=== PATIENT | male | born 1980 | race Caucasian/White ===

== ENCOUNTER 2022-08-10 19:07 | Emergency (ER) | payer MEDICAID, SELFPAY ==
[2022-08-10 19:53] VITALS: BP 132/96; PULSE 88; RESP 18; TEMP 36.7; O2SAT 98
[2022-08-10 20:23] LABS: Basophils Absolute Auto 0.1 K/mm3 (0.0-0.1); Basophils Percent Auto 0.8 % (0.2-1.2); Eosinophils Absolute Auto 0.1 K/mm3 (0-0.3); Eosinophils Percent Auto 1.4 % (0-4.4); Hematocrit 42.4 % (42.0-52.0); Hemoglobin 14.6 g/dL (14.0-18.0); Immature Granulocyte Absolute 0.03 K/mm3 (0.00-0.031); Immature Granulocyte Percent A 0.3 % (0-0.5); Lymphocytes Absolute Auto 2.73 K/mm3 (0.9-3.2); Lymphocytes Percent Auto 28.1 % (18.3-44.2); Mean Corpuscular HGB Conc 34.4 g/dl (32-36); Mean Corpuscular Hemoglobin 31.1 pg (26-34); Mean Corpuscular Volume 90.4 fl (80-100); Mean Platelet Volume 10.7 fl (7.4-10.4); Monocytes Absolute Auto 0.7 K/mm3 (0.1-0.6); Monocytes Percent Auto 7.3 % (2.6-8.5); Neutrophils Percent Auto 62.1 % (45.5-73.1); Platelet Count Result 375 k/mm3 (150-375); Red Blood Count 4.69 M/mm3 (4.6-6.20); Red Cell Distribution Width 12.5 % (11.5-14.5); White Blood Count 9.7 K/mm3 (4.5-10.0)
[2022-08-10 20:30] LABS: Appearance Urine Clear (Clear); Bilirubin Urine Negative (Negative); Blood Urine Negative (Negative); Color Urine Yellow (Yellow); Glucose Urine UA Negative (Negative); Ketones Urine Negative (Negative); Leukocyte Esterase Ur Negative LEU/UL (Negative); Nitrate Urine Negative (Negative); Protein Urine Negative (Negative); Urobilinogen Urine 0.2 mg/dL (<2.0)
[2022-08-10 20:33] LABS: Ethanol < 10 mg/dL (<10)
[2022-08-10 20:38] LABS: Bacteria Urine Trace /hpf; Mucus Urine Rare /lpf; RBC Urine 0-2 /hpf (0-2); Squamous Epithelial Cell Urine Rare /hpf (Few); WBC Urine 0-3 /hpf
[2022-08-10 20:39] LABS: Alanine Aminotransferase 20 U/L (6-50); Albumin Level 5.1 g/dL (3.5-5.1); Alkaline Phosphatase 43 U/L (38-126); Anion Gap 10 mmol/L (8-16); Aspartate Amino Transferase 27 U/L (17-59); Bilirubin,Total 0.7 mg/dL (0.2-1.3); Blood Urea Nitrogen 18 mg/dL (9-20); Calcium 9.3 mg/dL (8.4-10.2); Carbon Dioxide 24 mmol/L (22-30); Chloride 103 mmol/L (98-107); Estimated CRCL calculation 56 ml/min; Estimated Glomerular Filt Rate 55; Glucose 89 mg/dL (65-110); Potassium 4.5 mmol/L (3.4-5.0); Sodium 137 mmol/L (137-145)
--- NOTE | 2022-08-10 20:42 | PC.NURSE ---
All belongings secured and room stripped. patient calm and cooperative at this time. patient agreeable to plan.
[2022-08-10 20:45] LABS: Add Urine Microscopic? NO; Amphetamine Screen Urine Negative (Negative); Barbiturate Screen Urine Negative (Negative); Benzodiazepines Screen Urine Negative (Negative); Cannabinoid Screen Urine Positive (Negative); Cocaine Screen Urine Negative (Negative); Methadone Screen Urine Negative (Negative); Opiate Screen Urine Negative (Negative); Phencyclidine Screen Urine Negative (Negative)
[2022-08-10 21:04] LABS: Thyroid Stimulating Hormone 0.287 uIU/mL (0.465-4.680)
[2022-08-10 21:09] LABS: Influenza A QL RT-PCR Negative (Negative); Influenza B QL RT-PCR Negative (Negative); SARS-CoV-2 RNA PCR Negative
--- NOTE | 2022-08-10 21:21 | ED.ANXIETY ---
HPI - Anxiety General Chief Complaint: Anxiety <Shelley Covarrubias PA-C - Last Filed: 08/12/22 09:03> Stated Complaint: anxiety <Shelley Covarrubias PA-C - Last Filed: 08/12/22 09:03> Time Seen by Provider: 08/10/22 20:17 <Shelley Covarrubias PA-C - Last Filed: 08/12/22 09:03> Source: patient <MARIANA Le Last Filed: 08/12/22 09:03> Mode of arrival: ambulatory <MARIANA Le Last Filed: 08/12/22 09:03> Limitations: no limitations <MARIANA Le Last Filed: 08/12/22 09:03> History of Present Illness HPI narrative: Patient is a 41-year-old male who presents to the ED with report of paranoid delusions and suicidal ideation. Patient reports a history of previous childhood trauma as and undiagnosed PTSD from his father committing suicide in front of him 2 years ago. He states prior to his father committing suicide, he was having issues with his family dynamics, and believed his family was tracking him via GPS and monitoring his eye removed. He also believed his father was having inappropriate sexual relations with his girlfriend at the time and his half-sister. Patient states he never fully dealt with his father's suicide. He states he completely shut down for a few week. After the suicide, but then began working out and trying to avoid thinking about what happened. Over the last few weeks, he has noticed himself feeling paranoid, having delusions, thinking people are out to get him, wanting to kill him. He states even cars driving by him on the highway seem to be familiar or following him. He has had thoughts of wanting to harm himself recently and has several ideas that he mentions, but denies any 1 single plan. He has attempted to overdose on medications about 4 years ago and did overdose on fentanyl/heroin after his father's suicide, which a family member relieved with Narcan. He denies any homicidal ideation at this time. He is not currently on any psychiatric medicines. He believes he needs help and wants to quit thinking the way he does. He states it is starting to scare him. <Shelley Covarrubias PA-C - Last Filed: 08/12/22 09:03> Related Data Home Medications: Home Medications Medication Instructions Recorded Confirmed cholecalciferol (vitamin D3) 1,250 1,250 mcg PO WEEKLY 12/12/19 12/12/19 mcg (50,000 unit) capsule hydrochlorothiazide 12.5 mg tablet 12.5 mg PO DAILY 12/12/19 12/12/19 naproxen 500 mg tablet 500 mg PO TID 12/12/19 12/12/19 sertraline 100 mg tablet 100 mg PO DAILY 12/12/19 12/12/19 tizanidine 2 mg tablet 2 mg PO TID 12/12/19 12/12/19 valacyclovir 500 mg tablet 500 mg PO DAILY 12/12/19 12/12/19 <Shelley Covarrubias PA-C - Last Filed: 08/12/22 09:03> Allergies/Adverse Reactions: Allergies Allergy/AdvReac Type Severity Reaction Status Date / Time No Known Allergies Allergy Verified 08/10/22 21:20 <Shelley Covarrubias PA-C - Last Filed: 08/12/22 09:03> Review of Systems Review of Systems: CONSTITUTIONAL: Denies fever, chills, or sweats. EYES: Denies visual changes. CARDIOVASCULAR: Denies chest pain. RESPIRATORY: Denies dyspnea. GASTROINTESTINAL: Denies abdominal pain, nausea, vomiting, or diarrhea. NEUROLOGIC: Denies headache, numbness, or weakness. PSYCHIATRIC: See HPI. <Shelley Covarrubias PA-C - Last Filed: 08/12/22 09:03> All systems reviewed & are unremarkable except as noted in HPI and below <Shelley Covarrubias PA-C - Last Filed: 08/12/22 09:03> [facility] Past Medical History Medical History: Medical History ADHD Anxiety Arthritis Collar bone fracture Degenerative disc disease Scoliosis Spondylosis <Shelley Covarrubias PA-C - Last Filed: 08/12/22 09:03> Surgical History Surgical History: Surgical History H/O knee surgery Meniscal tea
[2022-08-11] MEDS: LORazepam (*CRX) 1 MG TABLET PO ×2 (05:43→15:17)
[2022-08-11 08:13] VITALS: BP 119/88; PULSE 81; RESP 16; TEMP 36.5; O2SAT 100
== END 2022-08-11 18:45 ==
PROVIDERS: Emergency Provider Physician Assistant
DX: R45.851 Suicidal ideations (principal); F22 Delusional disorders; F90.9 Attention-deficit hyperactivity disorder, unspecified type; F41.9 Anxiety disorder, unspecified; M19.90 Unspecified osteoarthritis, unspecified site; Z20.822 Contact with and (suspected) exposure to COVID-19
CPT/HCPCS: 36415; 80053; 80307; 81003; 84443; 85025; 87636; 99285; A9270